=== PATIENT | male | born 1970 | race Caucasian/White ===

== ENCOUNTER 2018-01-07 16:57 | Emergency (ER) | payer BC, MEDICARE ==
--- NOTE | 2018-01-07 17:14 | Emergency Department Record ---
History of Present Illness - General Chief complaint: Extremity Problem Stated complaint: FELL LT FOREARM PAIN/SWELLING Time Seen by Provider: 01/07/18 17:05 Source: Patient Mode of Arrival: Ambulatory Limitations: No limitations - History of Present Illness Initial comments: The patient is here due to injuring his R forearm yesterday. He tripped yesterday and landed on his R arm. There was no pain yesterday but today he is having pain over his R forearm. There is no elbow or wrist pain and no R arm numbness. MD Complaint: Extremity pain Onset/Timin -: Days(s) Location: Right, Forearm Severity scale (1-10): 8 Quality: Other Consistency: Constant Improves with: Nothing Worsens with: Nothing Associated Symptoms: Denies other symptoms - Related Data Home Medications Medication Instructions Recorded Confirmed Last Taken Ranitidine HCl [Zantac] 150 mg PO DAILY 01/07/18 01/07/18 Unknown Allergies Allergy/AdvReac Type Severity Reaction Status Date / Time No Known Drug Allergies Allergy Unverified 04/26/17 15:42 Travel Screening - Travel/Exposure Within Last 30 Days Have you traveled within the last 30 days?: No Review of Systems Constitutional: Denies: Chills, Fever Eyes: Denies: Eye discharge ENT: Denies: Congestion Respiratory: Denies: Cough, Dyspnea Past Medical History - SOCIAL HISTORY Smoking Status: Never smoker Alcohol Use: None Drug Use: None - RESPIRATORY Hx Respiratory Disorders: Yes Hx Bronchitis: Yes Hx Sleep Apnea: Yes Hx of CPAP: No (lost weight and no longer) - CARDIOVASCULAR Hx Cardio Disorders: No Hx Hypertension: Yes ("watching") - NEURO Hx Neuro Disorders: Yes Hx Neuropathy: Yes (BLE) Comment:: sciatica - GI Hx GI Disorders: Yes Hx Abdominal Pain: Yes Hx Reflux: Yes Hx Nausea/Vomiting: Yes ("queezing") - Hx Genitourinary Disorders: No - ENDOCRINE Hx Endocrine Disorders: No - MUSCULOSKELETAL Hx Musculoskeletal Disorders: Yes Hx Arthritis: Yes - PSYCH Hx Psych Problems: Yes Hx Anxiety: Yes Hx Depression: Yes - HEMATOLOGY/ONCOLOGY Hx Hematology/Oncology Disorders: No Family Medical History Any Significant Family History?: Yes Hx Cancer: Grandparents *Cancer Comment: brain Hx Heart Disease: Grandparents Physical Exam - General General Appearance: Alert, Oriented x3, Cooperative, No acute distress - Head Head exam: Atraumatic, Normocephalic, Normal inspection - Eye Eye exam: Normal appearance, PERRL - Neck Neck exam: Normal inspection, Full ROM. negative: Tenderness - Respiratory Respiratory exam: Normal lung sounds bilaterally. negative: Respiratory distress - Cardiovascular Cardiovascular Exam: Regular rate, Normal rhythm, Normal heart sounds - Extremities Extremities exam: Normal inspection, Full ROM, Tenderness (There is tenderness to palpation over the R medial forearm. There is no bruising or swelling appreciated. The R arm is NVI.). negative: Joint swelling Image of Full Body: 1 - Area of pain and tenderness. Course Vital Signs 01/07/18 17:01 Temperature 98.2 F Pulse Rate 89 Respiratory 18 Rate Blood Pressure 153/99 Pulse Ox 98 - Reevaluation(s) Reevaluation #1: I did discuss the neg xrays with the patient and the need for F/U if not better. 01/07/18 18:03 Medical Decision Making - Data Complexity MDM Data: X-Ray Ordered and/or Reviewed - Radiology Data Radiology results: Report reviewed (R Forearm: Neg per Rad.) Disposition Disposition: Discharge Clinical Impression: Arm contusion Qualifiers: Encounter type: initial encounter Laterality: right Qualified Code(s): S40.021A - Contusion of right upper arm, initial encounter Disposition: Home, Self-Care Condition: (2) Stable Instructions: Contusion in Adults (ED) Additional Instructions: Please use the R arm sling for 3-5 days and ice the painful area when possible. Please take your home pain medicines as needed. Please see your family doctor for recheck in 4-5 days if not better. Forms: Patient Portal Access Time of Disposition: 18:05 Quality - Quality Measures Quality Measures: N/A - Blood Pressure Screening View Details: Yes Does Patient Have Any of the Following: No Blood Pressure Classification: Hypertensive Reading Systolic Measurement: 153 Diastolic Measurement: 99 Screening for High Blood Pressure: < First Hypertensive BP, F/U Documented > [ [id number]] First Hypertensive Follow-up Interventions: Referral to alternative/primary care provider.
--- NOTE | 2018-01-09 10:10 | RADIOLOGY REPORT ---
EXAM: RIGHT FOREARM HISTORY: PATIENT FELL YESTERDAY WITH RIGHT FOREARM PAIN. TECHNIQUE: Three views of the right forearm were obtained. Comparison: No prior right forearm. Encounter: Initial. FINDINGS: There is a small spur of the olecranon and also a very small spur along the radial tuberosity of the proximal radial shaft, however, no definite acute fracture of the radius or ulna identified. IMPRESSION: 1. SOME MILD SPURRING IN THE PROXIMAL RADIUS AND ULNA. 2. NO DEFINITE FRACTURE OF THE RIGHT FOREARM IDENTIFIED. JOB NUMBER: [id number] [facility]
== END 2018-01-07 18:15 | disposition home or self-care (01) ==
LOC: ER 16:57
DX: S40.012A Contusion of left shoulder, initial encounter (principal); W01.0XXA Fall on same level from slipping, tripping and stumbling without subsequent striking against object, initial encounter; I10 Essential (primary) hypertension
CPT/HCPCS: 99283